=== PATIENT | female | born 1990 | race Caucasian/White ===

== ENCOUNTER 2016-04-06 00:18 | Emergency (ER) | payer SELFPAY ==
[~2016-04-06] VITALS: Ht 167.6 cm; Wt 61.3 kg
[~2016-04-06 00:18] MED LIST: AZIT250T94 PO; FLUT9.9S NASAL; IBUP-1542 PO
[2016-04-06 00:39] VITALS: Ht 167.6 cm; Wt 61.3 kg
[2016-04-06] MEDS ORDERED: CLOT30CR24 TOP (01:52)
[2016-04-06] MEDS ORDERED: FLUC150T17 PO (01:52)
--- NOTE | 2016-04-06 02:13 | ERD ---
ER Documentation Chief Complaint Date/Time DATE: 04/06/16 TIME: 02:08 Chief Complaint pain/rash in genital area x 2 days HPI 25-year-old female presents here in emergency department for complaint of rash and itching and perineal area for 2 days. Patient denies any vaginal discharge. Patient denies hematuria or dysuria. Patient does not have any fever or chills. Patient denies any new sexual partners. Patient denies any abdominal pain. Patient denies any flank pain. Patient denies any rash in other parts of the body. ROS All systems reviewed and are negative except as per history of present illness. Medications Home Meds Active Scripts Fluconazole* (Diflucan*) 150 Mg Tablet, 150 MG PO ONCE, #1 TAB Prov:OUMAR WEST NP 04/06/16 Clotrimazole* (Clotrimazole* AF) 1% - 30 Gm Cream.gm., 1 APPLIC TOP BID for 7 Days, TUB Prov:OUMAR WEST NP 04/06/16 Fluticasone Propionate (Flonase Allergy Relief) 9.9 Ml [place].susp, 1 SPRAY NASAL DAILY for 7 Days, #1 BOTTLE TO EACH NOSTRIL Prov:JUMA ORTIZ MD 08/17/15 Ibuprofen* (Motrin*) 600 Mg Tab, 600 MG PO Q6, #14 TAB Prov:JUMA ORTIZ MD 08/17/15 Azithromycin* (Zithromax*) 250 Mg Tablet, 250 MG PO .ZPACK DIRECTED, #6 TAB TAKE 500 MG (2 TABS) THE FIRST DAY THEN 250 MG (1 TAB) DAYS 2-5 Prov:JUMA ORTIZ MD 08/17/15 Allergies Allergies: Coded Allergies: No Known Drug Allergies (Verified Allergy, Unknown, 04/06/16) PMhx/Soc Medical and Surgical Hx: pt denies Medical Hx, pt denies Surgical Hx History of Surgery: No Anesthesia Reaction: No Hx Neurological Disorder: No Hx Respiratory Disorders: No Hx Cardiac Disorders: No Hx Psychiatric Problems: No Hx Miscellaneous Medical Probl: No Hx Alcohol Use: No Hx Substance Use: Yes (recreational use of marijuana) Hx Tobacco Use: No Smoking Status: Never smoker FmHx Family History: diabetes, other (HTN) Physical Exam Vitals Vital Signs Date Time Temp Pulse Resp B/P Pulse Ox O2 Delivery O2 Flow Rate FiO2 04/06/16 00:39 97.8 72 20 125/75 99 Physical Exam GENERAL: The patient is well developed and appropriate for usual state of health, in no apparent distress. CHEST: Clear to auscultation bilaterally. There are no rales, wheezes or rhonchi. HEART: Regular rate and rhythm. No murmurs, clicks, rubs or gallops. No S3 or S4. ABDOMEN: Soft, nontender and nondistended. Good bowel sounds. No rebound or guarding. No gross peritonitis. No gross organomegaly or masses. No Kidd sign or McBurney point tenderness. BACK: No midline or flank tenderness. EXTREMITIES: Equal pulses bilaterally. There is no peripheral clubbing, cyanosis or edema. No focal swelling or erythema. Full range of motion. Grossly neurovascularly intact. NEURO: Alert and oriented. Cranial nerves 2-12 intact. Motor strength in all 4 extremities with 5/5 strength. Sensation grossly intact. Normal speech and gait. SKIN: There is no apparent rash or petechia. The skin is warm and dry. HEMATOLOGIC AND LYMPHATIC: There is no evidence of excessive bruising or lymphedema. No gross cervical, axillary, or inguinal lymphadenopathy. : Noted some erythema with satellite lesions noted in the perineal area, no open wounds noted. No vaginal discharge noted. Procedures/MDM Medical decision making: Patient's symptoms likely consistent with a Jess vaginitis. Patient does not have any symptoms of STD. Patient does not have any symptoms of PID. No other rash noted. Low suspicion for syphilis. No symptoms of any abscess. No symptoms of Bartholin's abscess. Patient was given prescription for Diflucan, clotrimazole 1% cream, to avoid scratching the area. Patient was advised to follow primary care doctor in 2-3 days, see gynecology specialist. Patient was advised to return to emergency department for any worsening symptoms. Departure Diagnosis: Primary Impression: Jess vaginitis Condition: Stable Patient Instructions: Vaginitis, OUMAR Barton NP Apr 06, 2016 02:13
[2016-04-06 02:27] VITALS: BP 118/67; PULSE 65; RESP 20; TEMP 98.1
== END 2016-04-06 02:28 | disposition home or self-care (01) ==
LOC: FTE 00:18
DX: B37.3 Candidiasis of vulva and vagina (principal)
CPT/HCPCS: 99283